=== PATIENT | female | born 1970 | race Caucasian/White ===

== ENCOUNTER → 2016-07-14 | Outpatient (CLI) | payer OTHER ==
--- NOTE | 2016-07-14 17:10 | DX ---
PA and Lateral Chest History: Cough, tachycardia. Comparison: PA and lateral chest August 31, 2012. Findings: There is mild peribronchial thickening without focal consolidation. Minimal elevation of th e right hemidiaphragm is stable. There is no pneumothorax or pleural effusion. The heart and pulmonar y vasculature are normal. Mild degenerative change is present in the spine. Impression: Mild peribronchial thickening suggesting airways disease/bronchitis.
== END ==
LOC: CIMAGING 16:18
PROVIDERS: ATTEND Internal Medicine
DX: J45.909 Unspecified asthma, uncomplicated (principal)
CPT/HCPCS: 71020-PO

== ENCOUNTER → 2016-07-15 | Outpatient (CLI) | payer OTHER ==
--- NOTE | 2016-07-15 15:14 | MA ---
Screening Digital Mammogram With iCAD Analysis Clinical Indications: Routine screening. Technique: Standard cephalocaudal and mediolateral oblique projections were obtained. This examinatio n was processed by the iCAD computer aided detection system. Comparison: April 2015, March 2014, October 2012. Breast density: Type B; Scattered fibroglandular densities. Findings: CAD was reviewed. No masses, suspicious calcifications or other signs of malignancy are id entified. There has been no significant change in the appearance of either breast. Impression: Negative mammogram. BI-RADS 1. Recommendation: Routine mammographic screening in one year. [facility] will send a result letter to the patient. Negative mammography should not preclude additional workup of a clinically suspicious finding. The patient's information is entered into a reminder system with a target due date for her next mammo gram.
== END ==
LOC: FIMAGING 08:49
DX: Z12.31 Encounter for screening mammogram for malignant neoplasm of breast (principal)
CPT/HCPCS: G0202

== ENCOUNTER 2016-10-09 09:13 | Emergency (ER) | payer OTHER ==
[2016-10-09 09:27] VITALS: RESP 16
[2016-10-09 09:37] LABS: COLOR YELLOW; LEUKOCYTE ESTERASE,URINE TRACE (NEGATIVE); NITRITE,URINE NEGATIVE (NEGATIVE)
[2016-10-09] MEDS ORDERED: PHENAZOPYRIDINE HCL 200 MG TAB ONE (09:54)
[2016-10-09 09:57] LABS: BACTERIA 1+ /hpf (NONE SEEN)
[2016-10-09] MEDS ORDERED: PHENAZOPYRIDINE HCL 200 MG TAB PO ONE (09:57)
--- NOTE | 2016-10-09 10:22 | UCPHY ---
H & P Time Seen by Provider: 10/09/16 10:01 Patient Type: Established HPI/ROS: Patient has burning with urination over the past 3 days associated with frequency and some mild blood in the urine. The symptoms are similar to prior bladder infections. She has no other associated symptoms. Her symptoms are not improving and she notes no clear exacerbating or alleviating factors. ROS: No fevers or chills. No other constitutional symptoms. : No back pain. No vaginal discharge. GI: No vomiting. 7 point ROS is otherwise negative. Smoking Status: Never smoked Physical Exam: Physical Exam Vital signs are normal. General: No acute distress Eyes: Pupils equal and react to light. Extraocular motions are intact. Lungs: No respiratory distress. Cardiac: Brisk capillary refill is intact throughout. Pulses are 2+ and symmetric in the affected extremity. Back: No CVA tenderness Abdomen: Mild suprapubic tenderness with no guarding or rebound. Skin: No rash or pallor. Neuro: Alert with no sensorimotor deficits. Initial differential diagnosis: Cystitis, interstitial cystitis, pyelonephritis Constitutional: Initial Vital Signs Temperature (C) 37.5 C 10/09/16 09:20 Heart Rate 97 10/09/16 09:20 Respiratory Rate 16 10/09/16 09:20 Blood Pressure 114/77 10/09/16 09:20 O2 Sat (%) 99 10/09/16 09:20 O2 Delivery Mode Room Air Allergies/Adverse Reactions: No Known Allergies Allergy (Verified 10/09/16 09:27) Home Medications: Medication Instructions Recorded Cephalexin [Keflex (*)] 500 mg PO TID #21 cap 10/09/16 Clonazepam 10/09/16 Phenazopyridine HCl [Pyridium] 200 mg PO TID PRN #6 tab 10/09/16 Vyvanse 10/09/16 MDM/Departure - MDM Medications Given: Discontinued Medications Phenazopyridine HCl (Pyridium) 200 mg PO EDNOW ONE Stop: 10/09/16 09:58 Last Admin: 10/09/16 09:57 Dose: 200 mg Differential Diagnosis: Urinalysis is consistent with infection, clinical findings are consistent with cystitis. I counseled patient regarding this. She does not have clinical evidence to suggest significant pyelonephritis or sepsis. - Depart Disposition: Home, Routine, Self-Care Clinical Impression: Cystitis Condition: Good Instructions: Urinary Tract Infection in Women (ED) Additional Instructions: Diagnosis: Cystitis Plan: Drink plenty fluids Peridium for burning of urination if needed Keflex antibiotic Return for any significant worsening despite the treatment plan Prescriptions: Cephalexin [Keflex (*)] 500 mg PO TID #21 cap Phenazopyridine HCl [Pyridium] 200 mg PO TID PRN #6 tab PRN Reason: dysuria Referrals: Arslan Frankel MD [Primary Care Provider] - As per Instructions - PQRS PQRS Measurement: NA
[2016-10-09 10:28] VITALS: BP 119/84; PULSE 101; TEMP 99.1; O2SAT 98
== END 2016-10-09 10:26 | disposition home or self-care (01) ==
LOC: CED 09:13
DX: N30.00 Acute cystitis without hematuria (principal)
CPT/HCPCS: 81003-PO; 81015-PO; 99214-PO; G0463-PO

== ENCOUNTER → 2017-07-25 | Outpatient (CLI) | payer OTHER | LOC: FIMAGING 10:12 | PROVIDERS: ATTEND Obstetrics & Gynecology | DX: Z12.31 Encounter for screening mammogram for malignant neoplasm of breast (principal) ==

== ENCOUNTER 2017-08-14 14:00 | Emergency (ER) | payer OTHER ==
[2017-08-14 14:14] VITALS: BP 105/77; PULSE 107; RESP 16; TEMP 98.6; O2SAT 96
[2017-08-14] MEDS ORDERED: IBUPROFEN 600 MG TAB PO ONE (14:21)
--- NOTE | 2017-08-14 14:22 | EDPHY ---
H & P Time Seen by Provider: 08/14/17 14:05 HPI/ROS: HPI Fall, hand pain, facial pain. 47-year-old female by private vehicle. 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 She slipped forward on the ice landing primarily on her right hand and hitting the left side of her face, particularly the left cheek bone. She complains of pain to both hands but mostly the right hand and left-sided facial pain over the maxilla area. No loss of consciousness. No neck pain. No weakness or loss of sensation in her extremities. No changes in vision. No other complaints. She is right-hand dominant. She is not on anticoagulants or antiplatelet medications. ROS: Constitutional: No fever, no chills. No weakness. Eyes: No discharge. No changes in vision. ENT: Facial pain as above. Respiratory: No cough. No shortness of breath. Cardiac: No chest pain, no palpitations. Gastrointestinal: No abdominal pain, no vomiting, no diarrhea. Musculoskeletal: No back pain. No neck pain. Hand pain as above. No other extremity pain. Skin: No lacerations or abrasions. Neurological: No headache. No focal weakness or altered sensation. Past medical history: Anxiety, attention deficit hyperactivity disorder, uterine ablation, hysterectomy. Social history: She does not smoke. No alcohol. She is here by herself. Physical Exam: General Appearance: Alert, no distress, mildly anxious. This patient is responding to questions appropriately and in full sentences. This patient appears well-hydrated and well-nourished. Head: Normocephalic atraumatic. Face: Facial bones are stable on palpation. Mild tenderness over the left maxilla. No bony deformity or step-off or crepitus noted on palpation of this area. No diplopia on upward gaze. No infraorbital paresthesia to this area. No abrasion, contusion, soft tissue swelling or other significant findings on gross inspection. Eyes: Pupils equal and round and reactive to light, no pallor or injection. No lid erythema or edema. ENT, Mouth: Mucous membranes moist. Dentition is intact. No malocclusion of the jaw. No tongue lacerations or abrasions. Pharynx is clear. The bilateral nasal canals are clear. No septal hematoma. Respiratory: There are no retractions, lungs are clear to auscultation with good air movement bilaterally. Chest wall is stable to AP and lateral palpation. Cardiovascular: Regular rate and rhythm. No murmur. Gastrointestinal: Abdomen is soft and nontender, no masses, bowel sounds normal. Neurological: Motor sensory function is intact. Cranial nerves are normal. Cerebellar function intact. Skin: Warm and dry, no rashes. No lacerations, abrasions or contusions. Musculoskeletal: Neck is supple and nontender. The trachea is midline. No midline cervical, thoracic, lumbar or sacral tenderness on palpation. No flank tenderness on palpation. Right hand exam significant for some tenderness on palpation over the ventral aspect of the greater thenar eminence. No snuffbox tenderness, no pain elicited by axial compression of the left thumb. No pain with axial loading of the fingers, metacarpals and wrist. The left hand and wrist are unremarkable on exam without bony tenderness on palpation or axial loading of the digits and wrist. Extremities are symmetrical, full range of motion. All joints in the bilateral upper and bilateral lower extremities range without pain or impingement. No tenderness on palpation of the long bones in the bilateral upper and bilateral lower extremities. Psychiatric: No agitation. No depression. Database: EKG: Imaging: Right hand x-ray series: Negative for fracture, subluxation, dislocation. Interpreted by me. Procedures: Emergency department course: Vital signs reviewed and are unremarkable. She was given 600 mg of ibuprofen orally. She was sent for x-rays of her right hand. 2:25 p.m., patient re-evaluated. Resting comfortably at this time. X-ray results of her right hand discussed with her. I explained that I did not appreciate any significant traumatic injury on my examination of her as well as review of her x-rays. I discussed having her right hand x-rays repeated in 7- 10 days if she is still having any pain or discomfort. She feels comfortable returning to work. I discussed follow-up. Return to emergency department precautions were reviewed. All of her questions were answered. She was discharged in good condition. Differential Diagnosis: The differential diagnosis on this patient includes but is not limited to right hand sprain versus contusion. Hand fracture, subluxation, dislocation, facial fracture, mandibular injury, traumatic brain injury, cervical spine injury, other significant traumatic injury unlikely. This represents a partial list of diagnoses considered. These considerations are based on history, physical exam , past history, reassessment and diagnostic testing. Smoking Status: Never smoked Constitutional: Initial Vital Signs Temperature (C) 37 C 08/14/17 14:05 Heart Rate 107 H 08/14/17 14:05 Respiratory Rate 16 08/14/17 14:05 Blood Pressure 105/77 08/14/17 14:05 O2 Sat (%) 96 08/14/17 14:05 O2 Delivery Mode Room Air Allergies/Adverse Reactions: No Known Allergies Allergy (Verified 08/14/17 14:14) Home Medications: Medication Instructions Recorded Cephalexin [Keflex (*)] 500 mg PO TID #21 cap 10/09/16 Clonazepam 10/09/16 Phenazopyridine HCl [Pyridium] 200 mg PO TID PRN #6 tab 10/09/16 Vyvanse 10/09/16 Medical Decision Making - Data Points Medications Given: Discontinued Medications Ibuprofen (Motrin) 600 mg PO EDNOW ONE Stop: 08/14/17 14:22 Last Admin: 08/14/17 14:24 Dose: 600 mg Departure - Departure Disposition: Home, Routine, Self-Care Clinical Impression: Fall from slipping on ice, Right hand pain Condition: Good Instructions: Hand Sprain (ED) Additional Instructions: Read and follow provided instructions. Follow-up with your primary care physician or workman's Comp physician on Thursday for re-evaluation as discussed. You should have your right hand x-rays repeated in 7-10 days if you are still having pain in your right hand. This is to evaluate for a possible fracture we were not able to see on this emergency department visit. Ibuprofen dosin mg every 6 hours with meals for the next 3 days only. Take only as needed for pain. Return to the emergency department for worsening pain, headache, vomiting, swelling, discoloration or other serious concerns. Referrals: Arslan Frankel MD [Primary Care Provider] - As per Instructions
== END 2017-08-14 14:42 | disposition home or self-care (01) ==
LOC: CED 14:00
DX: S69.91XA Unspecified injury of right wrist, hand and finger(s), initial encounter (principal); W00.0XXA Fall on same level due to ice and snow, initial encounter; Y92.89 Other specified places as the place of occurrence of the external cause; Y99.0 Civilian activity done for income or pay; Y93.89 Activity, other specified
CPT/HCPCS: 73130-PO

== ENCOUNTER → 2018-09-24 | Outpatient (CLI) | payer OTHER | LOC: FIMAGING 08:42 | PROVIDERS: ATTEND Obstetrics & Gynecology | DX: Z12.31 Encounter for screening mammogram for malignant neoplasm of breast (principal) ==